=== PATIENT | female | born 2005 | race Caucasian/White ===

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

== ENCOUNTER → 2024-05-03 | Outpatient (CLI) | payer OTHER, SELFPAY ==
[2024-05-03 16:36] LABS: Erythrocyte Sedimentation Rate 1 mm/hr (0-30)
[2024-05-03 16:42] LABS: CRP < 2.90 mg/L (0.0-3.0)
[2024-05-09 00:06] LABS: Beef 0.12 kU/L (Class 0/I); Chocolate <0.10 kU/L (Class 0); Codfish <0.10 kU/L (Class 0); Corn <0.10 kU/L (Class 0); Egg, Whole 0.14 kU/L (Class 0/I); Milk (Cow) 0.31 kU/L (Class 0/I); Mussels <0.10 kU/L (Class 0); Peanut <0.10 kU/L (Class 0); Pork 0.61 kU/L (Class II); Salmon <0.10 kU/L (Class 0); Shrimp 0.25 kU/L (Class 0/I); Soybean <0.10 kU/L (Class 0); Tuna <0.10 kU/L (Class 0); Wheat <0.10 kU/L (Class 0)
[2024-05-09 12:08] LABS: Endomysial Antibody IgA Negative (Negative); Immunoglobulin A 91 mg/dL (87-352); Immunoglobulin E 73 IU/mL (6-495); Immunoglobulin G 1022 mg/dL (719-1475); Immunoglobulin M 100 mg/dL (58-230); t-Transglutaminase IgA <2 U/mL (0-3)
== END | disposition home or self-care (01) ==
LOC: LAB 15:30
PROVIDERS: PCP Pediatrics; Referring Provider Student in an Organized Health Care Education/Training Program; Visit Provider Student in an Organized Health Care Education/Training Program
DX: Z13.818 Encounter for screening for other digestive system disorders (principal); Z83.79 Family history of other diseases of the digestive system
CPT/HCPCS: 36415; 82784; 82785; 83516; 85652; 86003; 86005; 86140; 86255

== ENCOUNTER → 2024-05-12 | Outpatient (CLI) | payer OTHER, SELFPAY ==
[2024-05-16 17:08] LABS: Deamidated Gliadin IgA 5 units (0-19); Deamidated Gliadin IgG 3 units (0-19); Endomysial Antibody IgA Negative (Negative); Immunoglobulin A 97 mg/dL (87-352); t-Transglutaminase IgA <2 U/mL (0-3)
== END | disposition home or self-care (01) ==
LOC: LAB 16:12
PROVIDERS: PCP Pediatrics; Referring Provider Student in an Organized Health Care Education/Training Program; Visit Provider Student in an Organized Health Care Education/Training Program
DX: R11.0 Nausea (principal); Z83.79 Family history of other diseases of the digestive system
CPT/HCPCS: 36415; 82784; 83516; 86255

== ENCOUNTER 2024-07-07 07:28 | Day surgery (SDC) | payer OTHER, SELFPAY ==
[2024-07-07] VITALS (7 sets, daily range): BP systolic 90–114; BP diastolic 50–59; PULSE 52–77; RESP 16; TEMP 36.1–36.8; O2SAT 99–100; BMI 23.1
--- NOTE | 2024-07-07 08:18 | PRE.ANES_ITS ---
ASA Classification* ASA Classification ASA Classification: 2 Assessment & Plan Anesthesia* Anesthesia Assessment Anesthesia Assessment: Discussed sedation and/or anesthesia options, risks, benefits, and alternatives with patient/parents/legal guardian/POA. Questions invited. The patient/parents/legal guardian/POA seems to understand and agrees to proceed with anesthesia plan. Reviewed the physical assessment, medical history, allergy history and patient home medications list prior to surgery/procedure/anesthetic and documented any changes. Performed airway and anesthesia risk assessments. 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 When Was Last Pacemaker Check QUESTION #4 FULL TEXT: You/Your Family Experience fever (hyperthermia) with Anesthesia Last Oral Intake Last Oral intake: Last Oral Intake NPO since Meds taken in AM with sips of water? Meds patient instructed to take am of surgery PONV PONV - feed inspection supervisor: PONV - feed inspection supervisor Female Yes 07/01/24 13:24 HX of Motion Sickness No 07/01/24 13:24 HX of N/V After Surgery No 07/01/24 13:24 Non-Smoker Yes 07/01/24 13:24 Duration of Surgery greater No 07/01/24 13:24 than 60 minutes Number of Risk Factors 2 07/01/24 13:24 PONV Score Moderate Risk 07/01/24 13:24 Height & Weight Height & Weight: Anesthesia: Height & Weight Height 5 ft 6 in 07/07/24 07:48 Weight: 65 kg 07/07/24 07:48 Body Mass Index (BMI) 23.1 07/07/24 07:48 Respiratory Assessment Respiratory Assessment - feed inspection supervisor: Respiratory Tract Infection Hx - feed inspection supervisor Hx Respiratory Tract Infection No 07/01/24 13:24 STOP Sleep Apnea STOP Sleep Apnea - feed inspection supervisor: STOP Sleep Apnea - feed inspection supervisor Hx Hypertension No 07/01/24 13:24 Hx Sleep Apnea No 07/01/24 13:24 CPAP BIPAP Do you snore loudly (louder No 07/01/24 13:24 than talking or can be heard Do you often feel tired/ No 07/01/24 13:24 fatigued/ sleepy during daytime? Has anyone observed you stop No 07/01/24 13:24 breathing during sleep? STOP Results Negative 07/01/24 13:24 QUESTION #5 FULL TEXT : Do you snore loudly (louder than talking or can be heard through closed doors)? 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 Specify any problems Hx of Preganancy in last 3 No 07/01/24 13:24 Months Nurse Filling Out Transfusion VLEHMAN 07/01/24 13:24 & Questions: Date: 07/01/24 07/01/24 13:24 Time: 13:28 07/01/24 13:24 Patient unable to answer at this time (ie. confused, unrespo /Reproduction History /Reproductive History - feed inspection supervisor: /Reproductive Hx- feed inspection supervisor Hx Now No 07/01/24 13:24 Gestational Age (in weeks): EDC: Hx Hx Para Hx Section SAB No 07/01/24 13:24 PFSH Medical History Low iron Migraine headache Heartburn Dietary restriction Non-smoker Home Medications ?Medication ?Instructions ?Recorded ?Last Taken ?Type etonogestrel 0.12 mg-ethinyl 1 vag ring vaginal Q4W 05/03/24 Unknown History estradiol 0.015 mg/24 hr vaginal ring (NuvaRing) multivitamin 1 tab PO QAM 05/03/24 Unknown History fexofenadine 60 mg tablet (Zully 60 mg PO Q12H PRN ALLERGIES 07/01/24 Unknown History Allergy) Allergy/AdvReac Type Severity Reaction Status Date / Time No Known Allergies Allergy Verified 07/07/24 07:44 Surgical History No history of previous surgery Social History Smoking Status: Never smoker frequency: 3-4 times per week Review of Systems (Anesthesia) ROS Narrative System reviewed and no additional complaints, except as documented.
--- NOTE | 2024-07-07 08:25 | HP.PCM_ITS ---
HPI - General General Date of Admission: 07/07/24 Date of Service: 07/07/24 HPI Narrative PRINCESS VELAZQUEZ, is a 18 F who presentsChief Complaint: Family hx of celiac disease Details: PRINCESS VELAZQUEZ, is a 18 F who presents to the office today for f/u. [facility] established 05.03.24; Her father was recently diagnosed with severe celiac disease and hospitalized here at [facility]. For a few years she has felt she has sensitivities to gluten with daily nausea. She started avoiding wheat in 2020 and since then her symptoms have got better. She has occasional heartburn once every couple of weeks. She has never been formally tested for celiac disease or food allergies. She denies vomiting, constipation, or diarrhea. OV 11.7.24 Pt is here today to review results of her blood work. She had class I Allergy to shrimp, egg, cows milk, and beef. With a Class II allergy to pork. H er celiac panel was normal but Ttg IgG was not ordered. Orders: Orders Celiac AB,Comprehensive Today R11.0 - Nausea, Z83.79 - Family history of other diseases of the digestive system [facility] Medical History Low iron Migraine headache Heartburn Dietary restriction Non-smoker Home Medications ?Medication ?Instructions ?Recorded ?Last Taken ?Type etonogestrel 0.12 mg-ethinyl 1 vag ring vaginal Q4W 05/03/24 Unknown History estradiol 0.015 mg/24 hr vaginal ring (NuvaRing) multivitamin 1 tab PO QAM 05/03/24 Unknown History fexofenadine 60 mg tablet (Zully 60 mg PO Q12H PRN ALLERGIES 07/01/24 Unknown History Allergy) Allergy/AdvReac Type Severity Reaction Status Date / Time No Known Allergies Allergy Verified 07/07/24 07:44 Surgical History No history of previous surgery Social History Smoking Status: Never smoker frequency: 3-4 times per week ROS Constitutional Constitutional: Denies fatigue, fever(s), poor appetite, weight gain or weight loss Gastrointestinal Gastrointestinal: Denies belching, bloating, change in bowel habits, change in stool character, chewing difficulty, coffee ground emesis, constipation, cramping, diarrhea, dyspepsia, dysphagia, early satiety, excessive flatus, fecal incontinence, heartburn, hematemesis, hematochezia, hemorrhoids, loose stools, melena, nausea, odynophagia, rectal bleeding, tenesmus, vomiting or weight changes Vital Signs Vital Signs Vital Signs: 07/07/24 07:48 07/07/24 07:48 07/07/24 08:18 Temperature 97 F L 97 F L Temperature Source Temporal Pulse Rate 77 77 Respiratory Rate 16 16 Respiratory Pattern Normal Blood Pressure 114/59 L 114/59 L Blood Pressure Mean 77 Blood Pressure Source Monitor Blood Pressure Position Semi-Fowlers Blood Pressure Location Right Arm Pulse Ox 100 100 Oxygen Delivery Method Room Air Weight Weight: 143 lb 4.807 oz Body Mass Index (BMI) 23.1 Physical Exam Const alert, oriented x3, no apparent distress and healthy appearing General Appearance: cooperative GI normal to inspection, nondistended, normoactive bowel sounds, soft to palpation, non-tender and non-distended Percussion: normal to percussion Rectal Exam: deferred Assessment & Plan Assessment/Plan (1) Family history of celiac disease: (2) Nausea: PLAN: Plan Chief Complaint: Family hx of celiac disease Details: PRINCESS VELAZQUEZ, is a 18 F who presents to the office today for f/u. [facility] established 05.03.24; Her father was recently diagnosed with severe celiac disease and hospitalized here at [facility]. For a few years she has felt she has sens itivities to gluten with daily nausea. She started avoiding wheat in 2020 and since then her symptoms have got better. She has occasional heartburn once every couple of weeks. She has never been formally tested for celiac disease or food allergies. She denies vomiting, constipation, or diarrhea. OV 11.7.24 Pt is here today to review results of her blood work. She had class I Allergy to shrimp, egg, cows milk, and beef. With a Class II allergy to pork. Her celiac panel was normal but Ttg IgG was not ordered. ROS Const Constitutional: No anorexia, fatigue, fever(s), weight change or sleep problems Eyes Eyes: No change in vision ENT ENT: No abnormal hearing, difficulty swallowing, mouth lesions, tongue swelling or throat swelling Resp Respiratory: No cough or shortness of breath Cardio Cardiology: No chest pain at rest, chest pain with exertion, shortness of breath or dyspnea on exertion Gastro GI: No difficulty swallowing Genitourinary-Female: No difficulty urinating or burning urination Musc Musculoskeletal: No joint pain, joint swelling, muscle weakness or decreased muscle mass Skin Skin: No hair loss in leg, yellowing of the eye, itchy eyes, rash, skin ulcer or skin swelling Neuro Neurology: No abnormal hearing, abnormal movements, confusion, unsteady gait/balance or memory loss Psych Psychiatric: No anxiety, No confusion and No memory loss Endo Endocrine: No fatigue or weight change Aller/Imm Allergy/Immunologic: No itchy eyes, throat swelling or tongue swelling Steve/Lymp Hematologic/Lymphatic: No easy bleeding, easy bruising or enlarged lymph nodes Exam Const General: cooperative and comfortable Nutritional Appearance: average body habitus and well nourished HENMT Head: normal to inspection Ears: hearing grossly normal bilaterally Nose: external nose normal Face and sinus: normal facial exam Eyes General: appearance normal, both eyes and all related structures Neck Neck: normal visual inspection Chest Chest palpation & inspection: normal inspection of the chest Resp Effort & Inspection: normal respiratory effort GI Inspection: normal to inspection Skin General: no rashes or lesions noted Neuro General: patient alert Extrem General: normal to inspection Psych Affect: normal affect Assessment and Plan Assessment and Plan (1) Family history of celiac disease: Status: Acute Plan: This is a 18 yo female with family hx of celiac disease here to review her labs. Celiac panel was negative but the ttg igg was not drawn. I will re order this. Her rather only had an elevated ttg igg. She will also undergo EGD with biopsy for celiac disease. She had several low/equivocal food allergies. She will try to avoid pork for now as this was the highest. She will see if this helps with her symptoms. -EGD -Repeat celiac panel (2) Nausea: Status: Acute Orders: Orders Celiac AB,Comprehensive Today R11.0 - Nausea, Z83.79 - Family history of other diseases of the digestive system
[2024-07-07 08:26] LABS: Internal QC Validated? YES +Cl - CLEAR BKGD; Pregnancy, Urine Negative Negative
--- NOTE | 2024-07-07 08:30 | EGD_PTH ---
PATIENT: PRINCESS VELAZQUEZ LOC: EN U#:[id number] AGE/SX: 18/F ROOM: RE07/07/[address]: Dr. Can Carvalho DO : 2005 BED: DIS: 07/07/2024 SPEC #: [id number] RECD: 07/07/24 10:35 STATUS: BUSTER RECarey #: [id number] TAHIRA: 07/07/24 08:[address]: Can Carvalho DEPT: SURGICAL PATHOLOGY RECD BY: Rina Quiles ENTERED: 07/07/24 11:27 SP TYPE: EGD BIOPSY OT DR: Dr. Fuad Whatley MD Tissues: A - Duodenum, NOS B - Gastric mucous membrane C - Esophagus, NOS Procedures: Special Stain Group I Surgery Specimen Level IV Alcian Blue/PAS (control) HEADER OPERATION: EGD with biopsy PRE-OP DIAGNOSIS: Nausea/vomiting TISSUE SUBMITTED: A- Duodenum biopsy, B- Gastric body biopsy, C- Distal esophagus biopsy MICROSCOPIC DIAGNOSIS A. Duodenum, biopsy: A fragment of duodenal mucosa, no pathologic diagnosis. B. Gastric body, biopsy: Moderate gastritis. See microscopic description and comment. C. Distal esophagus, biopsy: Fragments of gastroesophageal mucosa with chronic inflammation. Intestinal metaplasia (goblet cell metaplasia) not identified. See comment. RAJEEV 07/08/2024 COMMENT B. The results of immunohistochemistry for Helicobacter pylori will be reported separately ([id number]). C. Alcian blue/PAS stain with matched control is used in the evaluation of the specimen. MICROSCOPIC DESCRIPTION Slides are reviewed. B. The specimen shows fragments of gastric mucosa with chronic inflammatory cell infiltrates in the lamina propria consisting of lymphocytes and plasma cells, consistent with moderate chronic gastritis. GROSS DESCRIPTION A. Received in fixative is one container labeled with the patient's name and designated Duodenum biopsy. The specimen consists of one irregular fragment of light christensen soft tissue that measures 0.6 x 0.2 x 0.1 cm. The specimen is totally submitted in one cassette. B. Received in fixative is one container labeled with the patient's name and designated Gastric body biopsy. The specimen consists of multiple irregular fragments of light christensen soft tissue that in aggregate measure 1.5 x 0.4 x 0.1 cm. The specimen is totally submitted in one cassette. C. Received in fixative is one container labeled with the patient's name and designated Distal esophagus biopsy. The specimen consists of multiple irregular fragments of light christensen soft tissue that in aggregate measure 1.0 x 0.5 x 0.1 cm. The specimen is totally submitted in one cassette. 07/07/2024 TC:3 CPT:[id number]
--- NOTE | 2024-07-07 08:30 | IMM_PTH ---
PATIENT: PRINCESS VELAZQUEZ LOC: EN U#:[id number] AGE/SX: 18/F ROOM: RE07/07/[address]: Dr. Can Carvalho DO : 2005 BED: DIS: 07/07/2024 SPEC #: [id number] RECD: 07/07/24 11:30 STATUS: BUSTER REQ #: [id number] TAHIRA: 07/07/24 08:[address]: Can Carvalho DEPT: IMMUNOHISTOCHEMISTRY RECD BY: Jaya Rowell ENTERED: 07/07/24 11:30 SP TYPE: IMMUNO OTHR DR: Dr. Fuad Whatley MD Tissues: B - Gastric mucous membrane Procedures: H Pylori (initial) PHYSICIAN & INSTITUTION [place] [address] SPECIMEN INFORMATION: Tissue Source: B- Gastric body biopsy Clinical Info: Nausea/vomiting Specimen Number: [id number] CPT code: 89784 METHODOLOGY: Deparaffinized sections of prefer/formalin-fixed tissue or PAP/DQ stained slides are incubated with monoclonal/polyclonal antibodies/oligonucleotide probes. Localization is made via biotin free immunoperoxidase method. Appropriate controls are performed and reacted as expected. Results on target cell population are indicated in the following table: RESULTS: ANTIBODY / CLONE RESULT Block B H Pylori (polyclonal) negative These tests were developed and their performance characteristics determined by [facility]. They may not have been cleared or approved by the U.S. Food and Drug Administration. The FDA has determined that such clearance or approval is not necessary. The above immunohistochemical/dualISH markers are ordered and reviewed by the Pathologist. INTERPRETATION: B. Gastric body, biopsy: Negative for Helicobacter pylori organisms. 07/08/2024
--- NOTE | 2024-07-07 09:09 | OP.CCLET_ITS ---
07/07/2024 Fuad Whatley [address] [place] [address] Re : Upper GI endoscopy procedure for Marie Spaulding Dear Dr. Whatley This procedure was performed on July. My impressions and recommendations are as follows: Impressions : - Z-line irregular, 38 cm from the incisors. Biopsied. - Erythematous mucosa in the gastric body. Biopsied. - Gastroparesis, idiopathic etiology. - Normal second portion of the duodenum. Biopsied. Recommendations : - Discharge patient to home. - Resume previous diet. - Continue present medications. - Await pathology results. My findings are described in the full procedure note, which is enclosed. If I can be of further assistance, please feel free to contact me at . Sincerely, Can Friend, 07/07/2024 9:08:46 AM This report has been signed electronically.
--- NOTE | 2024-07-07 09:09 | OP.EGD_ITS ---
Patient Name: Marie Spaulding Procedure Date: 07/07/2024 8:52 AM Date of : 2005 Age: 18 Procedure: Upper GI endoscopy Indications: Epigastric abdominal pain, Functional Dyspepsia, Indigestion, Failure to respond to medical treatment Providers: Can Carvalho DO Referring MD: Fuad Whatley Medicines: Monitored Anesthesia Care Patient Profile: This is a 18 year old female. Refer to note in patient chart for documentation of history and physical. Patient has symptoms of chronic abdominal cramping, chronic epigastric abdominal pain and chronic nausea. Complications: No immediate complications. Procedure: Pre-Anesthesia Assessment: - Prior to the procedure, a History and Physical was performed, and patient medications and allergies were reviewed. The patient is competent. The risks and benefits of the procedure and the sedation options and risks were discussed with the patient. All questions were answered and informed consent was obtained. Patient identification and proposed procedure were verified by the physician in the pre-procedure area. Mental Status Examination: alert and oriented. Airway Examination: normal oropharyngeal airway and neck mobility. Respiratory Examination: clear to auscultation. CV Examination: normal. Prophylactic Antibiotics: The patient does not require prophylactic antibiotics. Prior Anticoagulants: The patient has taken no anticoagulant or antiplatelet agents except for NSAID medication. ASA Grade Assessment: II - A patient with mild systemic disease. After reviewing the risks and benefits, the patient was deemed in satisfactory condition to undergo the procedure. The anesthesia plan was to use monitored anesthesia care (MAC). Immediately prior to administration of medications, the patient was re-assessed for adequacy to receive sedatives. The heart rate, respiratory rate, oxygen saturations, blood pressure, adequacy of pulmonary ventilation, and response to care were monitored throughout the procedure. The physical status of the patient was re-assessed after the procedure. After obtaining informed consent, the endoscope was passed under direct vision. Throughout the procedure, the patient's blood pressure, pulse, and oxygen saturations were monitored continuously. The Endoscope was introduced through the mouth, and advanced to the second part of duodenum. The upper GI endoscopy was accomplished without difficulty. The patient tolerated the procedure well. Scope In: 8:59:34 AM Scope Out: 9:04:39 AM Total Procedure Duration Time 0 hours 5 minutes 5 seconds Findings: The Z-line was irregular and was found 38 cm from the incisors. Biopsies were taken with a cold forceps for histology. Verification of patient identification for the specimen was done. Estimated blood loss was minimal. Patchy mildly erythematous mucosa without bleeding was found in the gastric body. Biopsies were taken with a cold forceps for histology. Verification of patient identification for the specimen was done. Estimated blood loss was minimal. Suspect gastroparesis due to absence of peristalsis, patient symptoms and retained gastric contents. The second portion of the duodenum was normal. Biopsies were taken with a cold forceps for histology. Biopsies for histology were taken with a cold forceps for evaluation of celiac disease. Verification of patient identification for the specimen was done. Estimated blood loss was minimal. Impression: - Z-line irregular, 38 cm from the incisors. Biopsied. - Erythematous mucosa in the gastric body. Biopsied. - Gastroparesis, idiopathic etiology. - Normal second portion of the duodenum. Biopsied. Recommendation: - Discharge patient to home. - Resume previous diet. - Continue present medications. - Await pathology results. Procedure Code(s): --- Professional --- 80126, Esophagogastroduodenoscopy, flexible, transoral; with biopsy, single or multiple CPT copyright 2021 [employer]. All rights reserved. The codes documented in this report are preliminary and upon [employer] special agent review may be revised to meet current compliance requirements. Can Carvalho DO 07/07/2024 9:08:46 AM This report has been signed electronically. Number of Addenda: 0 Note Initiated On: 07/07/2024 8:52 AM
--- NOTE | 2024-07-07 09:14 | PCM.POST.ANE ---
Anesthesia: Postop Eval I Current Vital Signs Temperature: 97.4 F Pulse Rate: 74 Blood Pressure: 95/52 Respiratory Rate: 16 Pulse Ox: 100 Oxygen Delivery Method: Room Air Assessment Airway patent: Yes Spontaneous unlabored respirations: Yes Mental status: Awake and Calm nausea: No Vomiting: No Anesthesia Complication: No Fluid Hydration Crystalloid volume administer (ml): 30 Total IV fluid infused: 30 Progress Note Anesthesia document: Postop Eval 1 completed: Yes
--- NOTE | 2024-07-07 11:45 | PCM.POSTANE2 ---
Anesthesia Postop Eval I Sum Postop Eval Completion status Anesthesia document: Postop Eval 1 completed: Yes Anesthesia Postop Eval I Summary Anesthesia Postop Eval I Summary: Anesthesia Postop Eval I: Assessment Summary Airway patent Yes 07/07/24 09:15 [email or web address] Spontaneous unlabored Yes 07/07/24 09:15 [email or web address] respirations Mental status Awake,Calm 07/07/24 09:15 [email or web address] nausea No 07/07/24 09:15 [email or web address] Vomiting No 07/07/24 09:15 [email or web address] Anesthesia Postop Eval I: Fluid Summary Crystalloid volume administer 30 07/07/24 09:15 [email or web address] (ml) Colloids volume administered ( ml) Blood Product volume administered (ml) Total IV fluid infused 30 07/07/24 09:15 [email or web address] Anesthesia Postop Eval I: Summary Notes Anesthesia Complication No 07/07/24 09:15 [email or web address] Anesthesia Complication Comment: Post-operative progress note Anesthesia: Postop Eval II Evaluation Mental status: Awake and Calm Pain Level: 0 nausea: No Vomiting: No Complications Anesthesia Complication: No
== END 2024-07-07 09:46 | disposition home or self-care (01) ==
LOC: EN 07:30 → AC 07:31
PROVIDERS: Anesthesiology; PCP Pediatrics; Referring Provider Pediatrics; Visit Provider Internal Medicine Gastroenterology
PROC: 0DJ08ZZ Inspection of Upper Intestinal Tract, Via Natural or Artificial Opening Endoscopic (ICD-10-PCS; CPT 43235; principal; 2024-07-07 08:25)
DX: K31.84 Gastroparesis (principal); K29.50 Unspecified chronic gastritis without bleeding; Z83.79 Family history of other diseases of the digestive system
CPT/HCPCS: 43239; 81025; 88305; 88312; 88342; A4216; J2405

== ENCOUNTER → 2024-11-10 | Outpatient (CLI) | payer OTHER, SELFPAY ==
[2024-11-15 09:08] LABS: Endomysial Antibody IgA Negative (Negative); Immunoglobulin A 90 mg/dL (87-352); t-Transglutaminase IgA <2 U/mL (0-3)
== END | disposition home or self-care (01) ==
LOC: LAB 15:42
PROVIDERS: PCP Pediatrics; Referring Provider Internal Medicine Gastroenterology; Visit Provider Internal Medicine Gastroenterology
DX: Z91.018 Allergy to other foods (principal); Z83.79 Family history of other diseases of the digestive system
CPT/HCPCS: 36415; 82784; 83516; 86003; 86005; 86255

== ENCOUNTER → 2025-03-03 | Outpatient (CLI) | payer OTHER, SELFPAY ==
[2025-03-09 03:07] LABS: Egg, White <0.10 kU/L (Class 0); Egg, Whole <0.10 kU/L (Class 0); Mussels <0.10 kU/L (Class 0); SCALLOP <0.10 kU/L (Class 0); SESAME SEED <0.10 kU/L (Class 0); Walnut, (Food) <0.10 kU/L (Class 0)
== END | disposition home or self-care (01) ==
LOC: LAB 12:19
PROVIDERS: PCP Pediatrics; Referring Provider Internal Medicine Gastroenterology; Visit Provider Internal Medicine Gastroenterology
DX: R11.0 Nausea (principal); Z91.018 Allergy to other foods
CPT/HCPCS: 36415; 86003; 86005

== ENCOUNTER → 2025-04-14 | Outpatient (CLI) | payer OTHER, SELFPAY ==
[2025-04-14 17:51] LABS: CRP < 3.00 mg/L (0.0-3.0)
[2025-04-19 09:08] LABS: Gastrin, Serum 161 pg/mL (0-115); Immunoglobulin A 89 mg/dL (87-352); Immunoglobulin G 1088 mg/dL (586-1602); Immunoglobulin M 91 mg/dL (26-217)
[2025-04-19 11:08] LABS: Egg, White <0.10 kU/L (Class 0); Egg, Whole <0.10 kU/L (Class 0); Mussels <0.10 kU/L (Class 0); SCALLOP <0.10 kU/L (Class 0); SESAME SEED <0.10 kU/L (Class 0); Walnut, (Food) <0.10 kU/L (Class 0)
== END | disposition home or self-care (01) ==
LOC: LAB 16:10
PROVIDERS: PCP Pediatrics; Referring Provider Internal Medicine Gastroenterology; Visit Provider Internal Medicine Gastroenterology
DX: Z91.018 Allergy to other foods (principal); R11.0 Nausea; Z83.79 Family history of other diseases of the digestive system
CPT/HCPCS: 36415; 82784; 82785; 82941; 83516; 85652; 86003; 86005; 86140; 86255

== ENCOUNTER → 2025-06-19 | Outpatient (CLI) | payer OTHER, SELFPAY ==
--- NOTE | 2025-06-19 13:36 | CT_ITS ---
PROCEDURE: ABDOMEN/PELVIS WITH CONTRAST 06/19/2025 REASON FOR EXAM: FOOD ALLERGIES AND NAUSEA TECHNIQUE: Procedure Code: [id number] Modality: CT Procedure: ABDOMEN/PELVIS WITH CONTRAST Coronal and Sagittal reconstruction series were provided. CONTRAST: Isovue 370 VOLUME: 91 mL. Unspecified oral contrast also administered. One or more dose reduction techniques were used (e.g., Automated exposure control, adjustment of the mA and/or kV according to patient size, use of iterative reconstruction technique. RADIATION DOSE SUMMARY: CTDlvol: 6.65+ 7.92 mGy DLP: 394.22 mGycm COMPARISON: None FINDINGS: Exam is slightly limited by a relative lack of intraperitoneal and retroperitoneal fat, specifically limiting evaluation of the bowel and retroperitoneal structures. Lung bases: Unremarkable. Liver: Unremarkable. Spleen: Unremarkable. Gallbladder: Unremarkable. Pancreas: Unremarkable. Adrenals: Unremarkable. Kidneys: Difficult to trace portions of the ureters. No hydronephrosis or definite ureteral calculus.. Bowel: No bowel dilatation or convincing inflammation. Clustered proximal small bowel loops in the region of the medially proximal to mid duodenum internal with a configuration suggestive of a RIGHT paraduodenal duodenal hernia. Normal caliber appendix. Lymph nodes: Unremarkable. Vasculature: Unremarkable. Peritoneum: Trace pelvic free fluid. Bladder: Unremarkable. Reproductive Organs: 1.6 cm LEFT adnexal presumed dominant follicle/physiologic cyst. Pessary. Body Wall: Tiny fat containing umbilical hernia.. Bones: Trace thoracolumbar levoscoliosis may be positional.. CT/Abdomen/Pelvis WITH Contrast IMPRESSION: 1. No clearly acute or suspicious findings. 2. Configuration of proximal small bowel suggestive of RIGHT para duodenal helene ia, normal variant, however probably placing the patient at risk for future development of closed loop small bowel obstruction. 3. Trace pelvic free fluid may be physiologic in this demographic. 4. Additional description as above. Reading Location: [id number]
== END | disposition home or self-care (01) ==
LOC: CT 13:36
PROVIDERS: PCP Pediatrics; Referring Provider Internal Medicine Gastroenterology; Visit Provider Internal Medicine Gastroenterology
DX: R11.0 Nausea (principal); Z91.018 Allergy to other foods
CPT/HCPCS: 74177; Q9967